=== PATIENT | male | born 1940 | race African-American/Black ===

== ENCOUNTER 2016-10-30 12:07 | Inpatient (IN) | payer OTHER ==
[2016-10-30 14:29] VITALS: BMI 26.1
[2016-10-30] MEDS ORDERED: MAGNESIUM CITRATE 300 ML BOTTLE PO PRN (15:37)
[2016-10-30] MEDS ORDERED: IBUPROFEN 400 MG TABLET (FP) PO PRN (15:37)
[2016-10-30] MEDS ORDERED: diphenhydrAMINE HCL 50 MG CAPSULE PO PRN (15:37)
[2016-10-30] MEDS ORDERED: LOPERAMIDE HCL 2 MG CAPSULE PO PRN (15:37)
[2016-10-30] MEDS ORDERED: MENTHOL/PHENOL 1 EACH UD MM PRN (15:37)
[2016-10-30] MEDS ORDERED: MAG HYDROX/AL HYDROX/SIMETH 30 ML UNIT-DOSE CUP PO PRN (15:37)
[2016-10-30] MEDS ORDERED: P-EPHED 60MG/TRIPROLIDI 2.5MG TABLET PO PRN (15:37)
[2016-10-30] MEDS ORDERED: ACETAMINOPHEN 325 MG TABLET (FP) PO PRN (15:37)
[2016-10-30] MEDS ORDERED: guaiFENesin/D-METHORPHAN HB 10 ML UNIT-DOSE CUPS PO PRN (15:37)
[2016-10-30] MEDS ORDERED: chlordiazePOXIDE HCL 25 MG CAPSULE PO PRN (15:37)
--- NOTE | 2016-10-30 15:48 | HP ---
CIWA Score - CIWA Score Nausea/Vomitin-Mild Nausea/No Vomiting Muscle Tremors: 4-Moderate,w/Arms Extend Anxiety: 4-Mod. Anxious/Guarded Agitation: 4-Moderately Restless Paroxysmal Sweats: 3 Orientation: 0-Oriented Tacttile Disturbances: 0-None Auditory Disturbances: 0-None Visual Disturbances: 0-None Headache: 0-None Present CIWA-Ar Total Score: 16 Admission ROS BHS - HPI Chief Complaint: Withdrawal sx. Allergies/Adverse Reactions: Allergies Allergy/AdvReac Type Severity Reaction Status Date / Time No Known Allergies Allergy Verified 10/30/16 15:11 History of Present Illness: 76 y/o man with a long hx. of alcoholism is admitted for detox. Pt. has been in previous detox, denies significant sobriety. pt. was sent here by her SW Exam Limitations: No Limitations - Ebola screening Have you traveled outside of the country in the last 21 days: No Have you had contact with anyone from an Ebola affected area: No Have you been sick,other than usual withdrawal symptoms: No Do you have a fever: No - Review of Systems Constitutional: Diaphoresis EENT: reports: No Symptoms Reported Respiratory: reports: No Symptoms reported Cardiac: reports: No Symptoms Reported GI: reports: Nausea, Abdominal cramping : reports: No Symptoms Reported Musculoskeletal: reports: No Symptoms Reported Integumentary: reports: Sweating Neuro: reports: Tremors Endocrine: reports: No Symptoms Reported Hematology: reports: No Symptoms Reported Psychiatric: reports: No Sypmtoms Reported Other Systems: Reviewed and Negative Patient History - Patient Medical History Hx Anemia: No Hx Asthma: No Hx Chronic Obstructive Pulmonary Disease (COPD): No Hx Cancer: No Hx Cardiac Disorders: No Hx Congestive Heart Failure: No Hx Hypertension: Yes (non compliant with meds.) Hx Hypercholesterolemia: Yes (not sure) Hx Pacemaker: No HX Cerebrovascular Accident: No Hx Seizures: No Hx Dementia: No Hx Diabetes: Yes (type II) Hx Gastrointestinal Disorders: No Hx Liver Disease: No Hx Genitourinary Disorders: No Hx Sexually Transmitted Disorders: No Hx Renal Disease (ESRD): No Hx Thyroid Disease: No Hx Human Immunodeficiency Virus (HIV): No Hx Hepatitis C: No Hx Depression: No Hx Suicide Attempt: No Hx Bipolar Disorder: No Hx Schizophrenia: No - Patient Surgical History Past Surgical History: Yes Hx Cataract Extraction: Yes (R eye cataract sx) Other Surgical History: R inguinal hernia s - PPD History Previous Implant?: No PPD to be Administered?: Yes - Smoking Cessation Smoking history: Never smoked - Substance & Tx. History Hx Alcohol Use: Yes Hx Substance Use: No Substance Use Type: Alcohol - Substances Abused Alcohol Route: Oral Frequency: Daily Amount used: 1/2 PINT NATE Age of first use: 23 Date of Last Use: 10/30/16 Family Disease History - Family Disease History Family Disease History: Other: Brother (alcohol) Admission Physical Exam [facility] - Vital Signs Vital Signs: Vital Signs - 24 hr 10/30/16 14:28 Temperature 96.7 F L Pulse Rate 69 Respiratory 18 Rate Blood Pressure 135/78 - Physical General Appearance: Yes: Tremorous, Sweating, Anxious HEENTM: Yes: Within Normal Limits Respiratory: Yes: Lungs Clear, Normal Breath Sounds, Decreased Breath Sounds Neck: Yes: Supple Breast: Yes: Breast Exam Deferred Cardiology: Yes: Regular Rhythm, Regular Rate, S1, S2 Abdominal: Yes: Normal Bowel Sounds, Non Tender, Soft Genitourinary: Yes: Within Normal Limits Back: Yes: Within Normal Limits Musculoskeletal: Yes: Within Normal Limits Extremities: Yes: Tremors Neurological: Yes: Fully Oriented, Alert Integumentary: Yes: Diaphoresis Lymphatic: Yes: Within Normal Limits Cleared for Admission [facility] - Detox or Rehab [facility] Level of Care: Medically Managed Detox Regimen/Protocol: Librium [facility] Breath Alcohol Content Breath Alcohol Content: 0 Urine Drug Screen - Results Drug Screen Negative: No Urine Drug Screen Results: BZO-Benzodiazepines
[2016-10-30] MEDS: chlordiazePOXIDE HCL 25 MG CAPSULE PO SCH ×2 (18:04→22:26)
[2016-10-30] MEDS: METOPROLOL TARTRATE 25 MG TABLET (FP) PO SCH (22:26)
[2016-10-30] MEDS: THIAMINE HCL 100 MG TABLET (FP) PO SCH (22:26)
[2016-10-30 22:45] LABS: URINE APPEARANCE CLEAR; URINE BILIRUBIN NEGATIVE (NEGATIVE); URINE BLOOD NEGATIVE (NEGATIVE); URINE COLOR YELLOW; URINE GLUCOSE (UA) NEGATIVE (NEGATIVE); URINE KETONE NEGATIVE (NEGATIVE); URINE LEUK ESTERASE NEGATIVE (NEGATIVE); URINE NITRITE NEGATIVE (NEGATIVE); URINE PROTEIN NEGATIVE (NEGATIVE); URINE UROBILINOGEN NEGATIVE E.U./dl (0.2-1.0)
--- NOTE | 2016-10-30 23:12 | PN ---
BHS Progress Note Note: DRY EYE ARTIFICIAL TEARS TO BOTH EYES CONTINUE DETOX
[2016-10-31] MEDS: chlordiazePOXIDE HCL 25 MG CAPSULE PO SCH ×4 (05:39→22:32)
--- NOTE | 2016-10-31 09:43 | EKG ---
Test Reason : Blood Pressure : / mmHG Vent. Rate : 063 BPM Atrial Rate : 063 BPM P-R Int : 144 ms QRS Dur : 096 ms QT Int : 452 ms P-R-T Axes : 046 -04 023 degrees QTc Int : 462 ms NORMAL SINUS RHYTHM NONSPECIFIC T WAVE ABNORMALITY PROLONGED QT ABNORMAL ECG NO PREVIOUS ECGS AVAILABLE Confirmed by MICHELLE HUDSON, JAY JAY ([id number]) on 10/31/2016 9:42:57 AM Referred By: Confirmed By:JAY JAY MARTINEZ MD
[2016-10-31 10:17] LABS: MCH 33.1 pg (25.7-33.7); MCHC 32.8 g/dl (32.0-35.9); MEAN CELL VOLUME 101.1 fl (80-96); MEAN PLT VOLUME 9.8 fl (7.5-11.1); PLATELET COUNT 169 K/MM3 (134-434); RDW 13.4 % (11.9-15.9); WHITE BLOOD COUNT 6.8 K/mm3 (4.0-10.0)
[2016-10-31 10:25] LABS: ALBUMIN 3.7 g/dl (3.4-5.0); CALCIUM 9.9 mg/dL (8.5-10.1)
[2016-10-31] MEDS: METOPROLOL TARTRATE 25 MG TABLET (FP) PO SCH ×2 (10:28→22:33)
[2016-10-31] MEDS: PRENATAL VITAMINS W/ FOLIC ACID TABLET (FP) PO SCH (10:28)
[2016-10-31] MEDS: ARTIFICIAL TEARS (POLYVINYL ALCOHOL 1.4%) OPTH DROPS OU SCH ×4 (10:28→22:00)
[2016-10-31 10:29] LABS: BILIRUBIN,TOTAL 0.7 mg/dL (0.2-1.0); CREATININE 1.2 mg/dL (0.7-1.3)
--- NOTE | 2016-10-31 10:50 | PN ---
[facility] CIWA - CIWA Score Nausea/Vomitin-No Nausea/No Vomiting Muscle Tremors: 4-Moderate,w/Arms Extend Anxiety: 4-Mod. Anxious/Guarded Agitation: 4-Moderately Restless Paroxysmal Sweats: 1-Minimal Palms Moist Orientation: 0-Oriented Tacttile Disturbances: 3-Moderate Itch/Numb/Burn Auditory Disturbances: 0-None Visual Disturbances: 0-None Headache: 0-None Present CIWA-Ar Total Score: 16 BHS Progress Note (SOAP) Subjective: ANXIETY,TREMORS,SWEATS. Objective: 10/31/16 10:49 Vital Signs 10/31/16 10/31/16 10/31/16 03:30 06:35 10:21 Temperature 96.5 F L 96.1 F L Pulse Rate 60 63 Respiratory 18 18 18 Rate Blood Pressure 133/76 112/78 Laboratory Last Values WBC 6.8 K/mm3 (4.0-10.0) 10/31/16 06:00 RBC 4.61 M/mm3 (4.00-5.60) 10/31/16 06:00 Hgb 15.3 GM/dL (11.7-16.9) 10/31/16 06:00 Hct 46.6 % (35.4-49) 10/31/16 06:00 MCV 101.1 fl (80-96) H 10/31/16 06:00 MCHC 32.8 g/dl (32.0-35.9) 10/31/16 06:00 RDW 13.4 % (11.9-15.9) 10/31/16 06:00 Plt Count 169 K/MM3 (134-434) 10/31/16 06:00 MPV 9.8 fl (7.5-11.1) 10/31/16 06:00 Sodium 142 mmol/L (136-145) 10/31/16 06:00 Potassium 5.2 mmol/L (3.5-5.1) H 10/31/16 06:00 Chloride 105 mmol/L (98-107) 10/31/16 06:00 Carbon Dioxide 31 mmol/L (21-32) 10/31/16 06:00 Anion Gap 6 (8-16) L 10/31/16 06:00 BUN 10 mg/dL (7-18) 10/31/16 06:00 Creatinine 1.2 mg/dL (0.7-1.3) 10/31/16 06:00 Creat Clearance w eGFR 58.86 (>60) 10/31/16 06:00 POC Glucometer 80 UNITS (()) 10/31/16 05:41 Random Glucose 96 mg/dL (74-106) 10/31/16 06:00 Calcium 9.9 mg/dL (8.5-10.1) 10/31/16 06:00 Total Bilirubin 0.7 mg/dL (0.2-1.0) 10/31/16 06:00 AST 14 U/L (15-37) L 10/31/16 06:00 ALT 13 U/L (12-78) 10/31/16 06:00 Alkaline Phosphatase 74 U/L (45-117) 10/31/16 06:00 Total Protein 7.0 g/dl (6.4-8.2) 10/31/16 06:00 Albumin 3.7 g/dl (3.4-5.0) 10/31/16 06:00 Urine Color Yellow 10/30/16 22:41 Urine Appearance Clear 10/30/16 22:41 Urine pH 5.0 (5.0-8.0) 10/30/16 22:41 Ur Specific [place] 1.020 (1.001-1.035) 10/30/16 22:41 Urine Protein Negative (NEGATIVE) 10/30/16 22:41 Urine Glucose (UA) Negative (NEGATIVE) 10/30/16 22:41 Urine Ketones Negative (NEGATIVE) 10/30/16 22:41 Urine Blood Negative (NEGATIVE) 10/30/16 22:41 Urine Nitrite Negative (NEGATIVE) 10/30/16 22:41 Urine Bilirubin Negative (NEGATIVE) 10/30/16 22:41 Urine Urobilinogen Negative E.U./dl (0.2-1.0) 10/30/16 22:41 Ur Leukocyte Esterase Negative (NEGATIVE) 10/30/16 22:41 Assessment: 10/31/16 10:50 WITHDRAWAL SX Plan: CONTINUE DETOX
[2016-10-31] MEDS ORDERED: PNEUMOCOCCAL 23 VACCINE 0.5 ML VIAL IM ONE (12:00)
[2016-10-31] MEDS ORDERED: INFLUENZA VACCINE 45 MCG/0.5 ML (MDV 16-17) IM ONE (12:00)
[2016-10-31] MEDS ORDERED: PNEUMOC 13-VAL CONJ-DIP CRM/PF 0.5 ML DISP.SYRIN IM ONE (12:00)
[2016-10-31 12:07] LABS: SICKLE CELL SCREEN NEGATIVE (NEGATIVE)
[2016-10-31] MEDS: MAGNESIUM HYDROX 2400MG/30ML ORAL SUSPENSION 30 ML CUP PO PRN (13:51)
[2016-10-31] MEDS: THIAMINE HCL 100 MG TABLET (FP) PO SCH (22:32)
[2016-11-01] MEDS: chlordiazePOXIDE HCL 25 MG CAPSULE PO SCH ×2 (05:44→10:44)
[2016-11-01] MEDS: ARTIFICIAL TEARS (POLYVINYL ALCOHOL 1.4%) OPTH DROPS OU SCH ×4 (10:44→22:29)
[2016-11-01] MEDS: PRENATAL VITAMINS W/ FOLIC ACID TABLET (FP) PO SCH (10:44)
[2016-11-01] MEDS: METOPROLOL TARTRATE 25 MG TABLET (FP) PO SCH ×2 (10:44→22:30)
--- NOTE | 2016-11-01 11:11 | PN ---
[facility] CIWA - CIWA Score Nausea/Vomitin-No Nausea/No Vomiting Muscle Tremors: 4-Moderate,w/Arms Extend Anxiety: 4-Mod. Anxious/Guarded Agitation: 4-Moderately Restless Paroxysmal Sweats: 1-Minimal Palms Moist Orientation: 0-Oriented Tacttile Disturbances: 3-Moderate Itch/Numb/Burn Auditory Disturbances: 0-None Visual Disturbances: 0-None Headache: 0-None Present CIWA-Ar Total Score: 16 BHS Progress Note (SOAP) Subjective: ANXIETY,SWEATS,ACHES. Objective: 11/01/16 11:10 Vital Signs Temperature 97.2 F L 11/01/16 09:25 Pulse Rate 70 11/01/16 09:25 Respiratory Rate 18 11/01/16 09:25 Blood Pressure 119/77 11/01/16 09:25 O2 Sat by Pulse Oximetry (%) Laboratory Last Values WBC 6.8 K/mm3 (4.0-10.0) 10/31/16 06:00 RBC 4.61 M/mm3 (4.00-5.60) 10/31/16 06:00 Hgb 15.3 GM/dL (11.7-16.9) 10/31/16 06:00 Hct 46.6 % (35.4-49) 10/31/16 06:00 MCV 101.1 fl (80-96) H 10/31/16 06:00 MCHC 32.8 g/dl (32.0-35.9) 10/31/16 06:00 RDW 13.4 % (11.9-15.9) 10/31/16 06:00 Plt Count 169 K/MM3 (134-434) 10/31/16 06:00 MPV 9.8 fl (7.5-11.1) 10/31/16 06:00 Sickle Cell Screen Negative (NEGATIVE) 10/31/16 06:00 Sodium 142 mmol/L (136-145) 10/31/16 06:00 Potassium 5.2 mmol/L (3.5-5.1) H 10/31/16 06:00 Chloride 105 mmol/L (98-107) 10/31/16 06:00 Carbon Dioxide 31 mmol/L (21-32) 10/31/16 06:00 Anion Gap 6 (8-16) L 10/31/16 06:00 BUN 10 mg/dL (7-18) 10/31/16 06:00 Creatinine 1.2 mg/dL (0.7-1.3) 10/31/16 06:00 Creat Clearance w eGFR 58.86 (>60) 10/31/16 06:00 POC Glucometer 73 UNITS (()) 11/01/16 05:43 Random Glucose 96 mg/dL (74-106) 10/31/16 06:00 Calcium 9.9 mg/dL (8.5-10.1) 10/31/16 06:00 Total Bilirubin 0.7 mg/dL (0.2-1.0) 10/31/16 06:00 AST 14 U/L (15-37) L 10/31/16 06:00 ALT 13 U/L (12-78) 10/31/16 06:00 Alkaline Phosphatase 74 U/L (45-117) 10/31/16 06:00 Total Protein 7.0 g/dl (6.4-8.2) 10/31/16 06:00 Albumin 3.7 g/dl (3.4-5.0) 10/31/16 06:00 Urine Color Yellow 10/30/16 22:41 Urine Appearance Clear 10/30/16 22:41 Urine pH 5.0 (5.0-8.0) 10/30/16 22:41 Ur Specific [place] 1.020 (1.001-1.035) 10/30/16 22:41 Urine Protein Negative (NEGATIVE) 10/30/16 22:41 Urine Glucose (UA) Negative (NEGATIVE) 10/30/16 22:41 Urine Ketones Negative (NEGATIVE) 10/30/16 22:41 Urine Blood Negative (NEGATIVE) 10/30/16 22:41 Urine Nitrite Negative (NEGATIVE) 10/30/16 22:41 Urine Bilirubin Negative (NEGATIVE) 10/30/16 22:41 Urine Urobilinogen Negative E.U./dl (0.2-1.0) 10/30/16 22:41 Ur Leukocyte Esterase Negative (NEGATIVE) 10/30/16 22:41 RPR Titer Nonreactive (NONREACTIVE) 10/31/16 06:00 Assessment: 11/01/16 11:10 WITHDRAWAL SX Plan: CONTINUE DETOX INCREASE PO FLUIDS
[2016-11-01] MEDS: chlordiazePOXIDE 5 MG CAPSULE PO SCH ×2 (17:38→22:30)
[2016-11-01] MEDS: THIAMINE HCL 100 MG TABLET (FP) PO SCH (22:29)
[2016-11-02] MEDS: chlordiazePOXIDE 5 MG CAPSULE PO SCH ×2 (05:49→10:29)
[2016-11-02] MEDS: METOPROLOL TARTRATE 25 MG TABLET (FP) PO SCH ×2 (09:56→22:38)
--- NOTE | 2016-11-02 10:16 | PN ---
S Progress Note (SOAP) Subjective: Sweating,interrupted sleep,restless Objective: 11/02/16 10:15 Vital Signs - 8 hr 11/02/16 11/02/16 03:30 06:42 Temperature 95.8 F L Pulse Rate 54 L Respiratory 18 16 Rate Blood Pressure 125/77 Laboratory Last Values WBC 6.8 K/mm3 (4.0-10.0) 10/31/16 06:00 RBC 4.61 M/mm3 (4.00-5.60) 10/31/16 06:00 Hgb 15.3 GM/dL (11.7-16.9) 10/31/16 06:00 Hct 46.6 % (35.4-49) 10/31/16 06:00 MCV 101.1 fl (80-96) H 10/31/16 06:00 MCHC 32.8 g/dl (32.0-35.9) 10/31/16 06:00 RDW 13.4 % (11.9-15.9) 10/31/16 06:00 Plt Count 169 K/MM3 (134-434) 10/31/16 06:00 MPV 9.8 fl (7.5-11.1) 10/31/16 06:00 Sickle Cell Screen Negative (NEGATIVE) 10/31/16 06:00 Sodium 142 mmol/L (136-145) 10/31/16 06:00 Potassium 5.2 mmol/L (3.5-5.1) H 10/31/16 06:00 Chloride 105 mmol/L (98-107) 10/31/16 06:00 Carbon Dioxide 31 mmol/L (21-32) 10/31/16 06:00 Anion Gap 6 (8-16) L 10/31/16 06:00 BUN 10 mg/dL (7-18) 10/31/16 06:00 Creatinine 1.2 mg/dL (0.7-1.3) 10/31/16 06:00 Creat Clearance w eGFR 58.86 (>60) 10/31/16 06:00 POC Glucometer 73 UNITS (()) 11/01/16 05:43 Random Glucose 96 mg/dL (74-106) 10/31/16 06:00 Calcium 9.9 mg/dL (8.5-10.1) 10/31/16 06:00 Total Bilirubin 0.7 mg/dL (0.2-1.0) 10/31/16 06:00 AST 14 U/L (15-37) L 10/31/16 06:00 ALT 13 U/L (12-78) 10/31/16 06:00 Alkaline Phosphatase 74 U/L (45-117) 10/31/16 06:00 Total Protein 7.0 g/dl (6.4-8.2) 10/31/16 06:00 Albumin 3.7 g/dl (3.4-5.0) 10/31/16 06:00 Urine Color Yellow 10/30/16 22:41 Urine Appearance Clear 10/30/16 22:41 Urine pH 5.0 (5.0-8.0) 10/30/16 22:41 Ur Specific [place] 1.020 (1.001-1.035) 10/30/16 22:41 Urine Protein Negative (NEGATIVE) 10/30/16 22:41 Urine Glucose (UA) Negative (NEGATIVE) 10/30/16 22:41 Urine Ketones Negative (NEGATIVE) 10/30/16 22:41 Urine Blood Negative (NEGATIVE) 10/30/16 22:41 Urine Nitrite Negative (NEGATIVE) 10/30/16 22:41 Urine Bilirubin Negative (NEGATIVE) 10/30/16 22:41 Urine Urobilinogen Negative E.U./dl (0.2-1.0) 10/30/16 22:41 Ur Leukocyte Esterase Negative (NEGATIVE) 10/30/16 22:41 RPR Titer Nonreactive (NONREACTIVE) 10/31/16 06:00 labs noted Assessment: 11/02/16 10:16 Withdrawal sx. Plan: Continue detox
[2016-11-02] MEDS: ARTIFICIAL TEARS (POLYVINYL ALCOHOL 1.4%) OPTH DROPS OU SCH ×4 (10:29→22:37)
[2016-11-02] MEDS: PRENATAL VITAMINS W/ FOLIC ACID TABLET (FP) PO SCH (10:29)
[2016-11-02] MEDS: chlordiazePOXIDE HCL 10 MG CAPSULE PO SCH ×2 (17:06→22:38)
[2016-11-02] MEDS: THIAMINE HCL 100 MG TABLET (FP) PO SCH (22:39)
[2016-11-02] MEDS: MAGNESIUM HYDROX 2400MG/30ML ORAL SUSPENSION 30 ML CUP PO PRN (22:40)
[2016-11-03] MEDS: chlordiazePOXIDE HCL 10 MG CAPSULE PO SCH ×2 (06:00→10:30)
[2016-11-03] MEDS: METOPROLOL TARTRATE 25 MG TABLET (FP) PO SCH ×2 (10:30→22:30)
[2016-11-03] MEDS: PRENATAL VITAMINS W/ FOLIC ACID TABLET (FP) PO SCH (10:30)
[2016-11-03] MEDS: ARTIFICIAL TEARS (POLYVINYL ALCOHOL 1.4%) OPTH DROPS OU SCH ×4 (10:53→22:29)
--- NOTE | 2016-11-03 11:25 | PN ---
BHS Progress Note (SOAP) Subjective: Sweating,interrupted sleep,restless Objective: 11/03/16 11:24 Vital Signs - 8 hr 11/03/16 11/03/16 11/03/16 03:30 06:31 09:49 Temperature 95.3 F L 97.1 F L Pulse Rate 66 66 Respiratory 18 16 18 Rate Blood Pressure 114/73 95/61 Laboratory Tests 10/30/16 10/30/16 10/31/16 15:46 22:41 05:41 WBC RBC Hgb Hct MCV MCHC RDW Plt Count MPV Sickle Cell Screen Sodium Potassium Chloride Carbon Dioxide Anion Gap BUN Creatinine Creat Clearance w eGFR POC Glucometer 83 80 Random Glucose Calcium Total Bilirubin AST ALT Alkaline Phosphatase Total Protein Albumin Urine Color Yellow Urine Appearance Clear Urine pH 5.0 Ur Specific [place] 1.020 Urine Protein Negative Urine Glucose (UA) Negative Urine Ketones Negative Urine Blood Negative Urine Nitrite Negative Urine Bilirubin Negative Urine Urobilinogen Negative Ur Leukocyte Esterase Negative RPR Titer 10/31/16 10/31/16 10/31/16 06:00 06:00 06:00 WBC 6.8 RBC 4.61 Hgb 15.3 Hct 46.6 MCV 101.1 H MCHC 32.8 RDW 13.4 Plt Count 169 MPV 9.8 Sickle Cell Screen Negative Sodium 142 Potassium 5.2 H Chloride 105 Carbon Dioxide 31 Anion Gap 6 L BUN 10 Creatinine 1.2 Creat Clearance w eGFR 58.86 POC Glucometer Random Glucose 96 Calcium 9.9 Total Bilirubin 0.7 AST 14 L ALT 13 Alkaline Phosphatase 74 Total Protein 7.0 Albumin 3.7 Urine Color Urine Appearance Urine pH Ur Specific [place] Urine Protein Urine Glucose (UA) Urine Ketones Urine Blood Urine Nitrite Urine Bilirubin Urine Urobilinogen Ur Leukocyte Esterase RPR Titer Nonreactive labs noted Assessment: 11/03/16 11:24 Withdrawal Sx. Plan: Continue detox
[2016-11-03] MEDS: THIAMINE HCL 100 MG TABLET (FP) PO SCH (22:29)
[2016-11-04] MEDS: PRENATAL VITAMINS W/ FOLIC ACID TABLET (FP) PO SCH (09:28)
[2016-11-04] MEDS: ARTIFICIAL TEARS (POLYVINYL ALCOHOL 1.4%) OPTH DROPS OU SCH ×4 (09:28→22:16)
[2016-11-04] MEDS: METOPROLOL TARTRATE 25 MG TABLET (FP) PO SCH (09:30)
--- NOTE | 2016-11-04 12:23 | PN ---
S Progress Note (SOAP) Subjective: Pt. has completed detox,however his BP is 88/55 he's somewhat weak. Objective: 11/04/16 12:22 Vital Signs - 8 hr 11/04/16 11/04/16 06:31 09:41 Temperature 96.0 F L 97.0 F L Pulse Rate 63 60 Respiratory 18 18 Rate Blood Pressure 122/79 88/55 Assessment: 11/04/16 12:22 Mild hypotension Plan: D/C metoprolol cancel discharge
[2016-11-04] MEDS: THIAMINE HCL 100 MG TABLET (FP) PO SCH (22:16)
[2016-11-04] MEDS: MAGNESIUM HYDROX 2400MG/30ML ORAL SUSPENSION 30 ML CUP PO PRN (22:38)
[2016-11-05 06:21] VITALS: PULSE 69
[2016-11-05 10:40] VITALS: BP 109/67; TEMP 96
--- NOTE | 2016-11-05 11:32 | DS ---
[facility] Detox Discharge Summary Admission Date: 10/30/16 Discharge Date: 11/05/16 - History Present History: Alcohol Dependence Pertinent Past History: HTN - Physical Exam Results Vital Signs: Vital Signs Temperature 96 F L 11/05/16 10:39 Pulse Rate 69 11/05/16 10:39 Respiratory Rate 18 11/05/16 10:39 Blood Pressure 109/67 11/05/16 10:39 O2 Sat by Pulse Oximetry (%) Pertinent Admission Physical Exam Findings: Withdrawal sx. Laboratory Tests 10/30/16 10/30/16 10/31/16 15:46 22:41 05:41 WBC RBC Hgb Hct MCV MCHC RDW Plt Count MPV Sickle Cell Screen Sodium Potassium Chloride Carbon Dioxide Anion Gap BUN Creatinine Creat Clearance w eGFR POC Glucometer 83 80 Random Glucose Calcium Total Bilirubin AST ALT Alkaline Phosphatase Total Protein Albumin Urine Color Yellow Urine Appearance Clear Urine pH 5.0 Ur Specific [place] 1.020 Urine Protein Negative Urine Glucose (UA) Negative Urine Ketones Negative Urine Blood Negative Urine Nitrite Negative Urine Bilirubin Negative Urine Urobilinogen Negative Ur Leukocyte Esterase Negative RPR Titer 10/31/16 10/31/16 10/31/16 06:00 06:00 06:00 WBC 6.8 RBC 4.61 Hgb 15.3 Hct 46.6 MCV 101.1 H MCHC 32.8 RDW 13.4 Plt Count 169 MPV 9.8 Sickle Cell Screen Negative Sodium 142 Potassium 5.2 H Chloride 105 Carbon Dioxide 31 Anion Gap 6 L BUN 10 Creatinine 1.2 Creat Clearance w eGFR 58.86 POC Glucometer Random Glucose 96 Calcium 9.9 Total Bilirubin 0.7 AST 14 L ALT 13 Alkaline Phosphatase 74 Total Protein 7.0 Albumin 3.7 Urine Color Urine Appearance Urine pH Ur Specific [place] Urine Protein Urine Glucose (UA) Urine Ketones Urine Blood Urine Nitrite Urine Bilirubin Urine Urobilinogen Ur Leukocyte Esterase RPR Titer Nonreactive 11/01/16 11/03/16 11/04/16 05:43 06:09 05:44 WBC RBC Hgb Hct MCV MCHC RDW Plt Count MPV Sickle Cell Screen Sodium Potassium Chloride Carbon Dioxide Anion Gap BUN Creatinine Creat Clearance w eGFR POC Glucometer 73 94 95 Random Glucose Calcium Total Bilirubin AST ALT Alkaline Phosphatase Total Protein Albumin Urine Color Urine Appearance Urine pH Ur Specific [place] Urine Protein Urine Glucose (UA) Urine Ketones Urine Blood Urine Nitrite Urine Bilirubin Urine Urobilinogen Ur Leukocyte Esterase RPR Titer labs noted - Treatment Hospital Course: Detox Protocol Followed, Detoxed Safely, Responded well, Discharged Condition Good, Rehab Referral Accepted Patient has Accepted a Rehab Referral to: [facility]. - Medication Discharge Medications: Ambulatory Orders NK [No Known Home Medication] 10/30/16 - Diagnosis (1) Alcohol dependence with uncomplicated withdrawal Status: Acute (2) HTN (hypertension) Status: Acute Qualifiers: Hypertension type: essential hypertension Qualified Code(s): I10 - Essential (primary) hypertension - AMA Did Patient Leave Against Medical Advice: No (Pt. was provided with transportation to go home.)
== END 2016-11-05 10:00 | disposition home or self-care (01) | DRG 897 ==
LOC: YASAS 12:07 → Y3N 15:47
PROVIDERS: ADMIT Internal Medicine; ATTEND Internal Medicine
PROC: HZ2ZZZZ Detoxification Services for Substance Abuse Treatment (ICD-10-PCS; principal; 2016-10-30)
DX: F19.230 Other psychoactive substance dependence with withdrawal, uncomplicated (principal); F10.230 Alcohol dependence with withdrawal, uncomplicated; I10 Essential (primary) hypertension; H04.123 Dry eye syndrome of bilateral lacrimal glands; E11.9 Type 2 diabetes mellitus without complications; Z91.14 Patient's other noncompliance with medication regimen
CPT/HCPCS: 36415; 80053; 81003; 85027; 85660; 86593; 90732; 93005; 93010; G0008; G0009; Q2037